=== PATIENT | male | born 1975 | race Two or more races ===

== ENCOUNTER 2018-12-23 03:55 | Emergency (ER) | payer OTHER, MEDICAID ==
[~2018-12-23] VITALS: Ht 170.2 cm; Wt 95.3 kg
[2018-12-23 04:00] VITALS: Ht 170.2 cm; Wt 95.3 kg
[2018-12-23 06:03] VITALS: BP 117/57
== END 2018-12-23 06:03 | disposition home or self-care (01) ==
LOC: ED 03:55
DX: R05 Cough (principal); E78.00 Pure hypercholesterolemia, unspecified